=== PATIENT | male | born 1960 | race Caucasian/White ===

== ENCOUNTER 2016-09-09 13:23 | Emergency (ER) | payer OTHER ==
[2016-09-09 13:38] VITALS: BP 135/93
== END 2016-09-09 15:19 | disposition home or self-care (01) ==
LOC: ED 13:23
DX: S00.86XA Insect bite (nonvenomous) of other part of head, initial encounter (principal); I10 Essential (primary) hypertension; E11.9 Type 2 diabetes mellitus without complications; E78.00 Pure hypercholesterolemia, unspecified; Z79.4 Long term (current) use of insulin; W57.XXXA Bitten or stung by nonvenomous insect and other nonvenomous arthropods, initial encounter; Y93.89 Activity, other specified; Y99.8 Other external cause status; Y92.89 Other specified places as the place of occurrence of the external cause
CPT/HCPCS: J0690